=== PATIENT | male | born 1965 | race Caucasian/White ===

== ENCOUNTER 2018-05-11 11:07 | Emergency (ER) | payer BC ==
[2018-05-11 12:33] LABS: ABS Basophils 0 10^3/ul (0-0.2); ABS Eosinophils 0.1 10^3/ul (0-0.6); ABS Lymphocytes 1.9 10^3/ul (1.0-4.8); ABS Monocytes 0.4 10^3/ul (0-0.8); ABS Neutrophils 3.5 10^3/ul (1.5-7.7); ABS Nucleated RBC 0 10^3/ul; Hematocrit 47 % (42-52); Hemoglobin 16.2 g/dl (14.0-18.0); Mean Corpuscular HGB Conc 35 g/dl (31-36); Mean Corpuscular Hemoglobin 29 pg (27-31); Mean Corpuscular Volume 83 fL (80-94); Mean Platelet Volume 8.4 um3 (7.4-10.4); Nucleated Red Blood Cells % 0.1; Platelet Count 174 10^3/ul (150-450); Red Blood Count 5.67 10^6/ul (4.00-5.40); Red Cell Distribution Width 15 % (10.5-15); White Blood Count 5.9 10^3/ul (3.5-10.8)
[2018-05-11 12:53] LABS: EGFR Non-African American 79.1 (>60)
[2018-05-11] MEDS ORDERED: Iohexol 300* (CONTRAST) 10 ML SDV IV ONE (13:43)
[2018-05-11 15:06] LABS: Urine Appearance Clear; Urine Blood Negative (Negative); Urine Color Yellow; Urine Ketones Negative (Negative); Urine Protein Negative (Negative); Urine Specific Gravity 1.019 (1.010-1.030); Urine Urobilinogen Negative (Negative)
--- NOTE | 2018-05-11 15:08 | RAD ---
CLINICAL HISTORY: low abd pain radiating to left testicle x 3 weeks COMPARISON: None TECHNIQUE: Multiple contiguous axial CT scans were obtained of the abdomen and pelvis after the administration of intravenous contrast. Coronal and sagittal multiplanar reformations are submitted for review. Oral contrast was administered. Delayed images were obtained through the abdomen. FINDINGS: LUNG BASES: The lung bases are clear. LIVER: The liver is diffusely low in attenuation compared to the spleen. There is a hypervascular lesion of the medial right lobe of liver suggestive of a hemangioma. On axial image 23, there is a 1.2 cm low-attenuation lesion of the right lobe of liver inferiorly. BILE DUCTS: There is no intrahepatic or extrahepatic biliary dilatation. GALLBLADDER: The gallbladder is normal, without pericholecystic inflammatory change. PANCREAS: The pancreas is normal, without mass or ductal dilatation. SPLEEN: Normal in size and appearance. UPPER GI TRACT: Evaluation of the gastrointestinal tract is limited by incomplete gastric distention. The upper GI tract is unremarkable. SMALL BOWEL AND MESENTERY: The small bowel is normal in contour, course, and caliber. There is no obstruction or dilatation. COLON: The colon is normal in contour, course, caliber. There is no pericolonic inflammatory change. ADRENALS: Normal bilaterally. KIDNEYS: The kidneys are normal in shape, size, contour, and axis. There is no hydronephrosis or nephrolithiasis. BLADDER: The bladder is smooth in contour. PELVIC ORGANS: The prostate is diffusely enlarged. The seminal vesicles are symmetric. There are lipomas of the somatic cords bilaterally versus bilateral fat-containing inguinal hernias. AORTA: The aorta is normal. IVC: Unremarkable LYMPH NODES: There is no lymphadenopathy by size criteria. ABDOMINAL WALL: There is no evidence for abdominal wall hernia. BONES AND SOFT TISSUES: There is mild scoliotic curvature of the spine. Degenerative changes are noted most now set L5-S1 OTHER: None IMPRESSION: 1. ENLARGED PROSTATE. 2. FATTY INFILTRATION OF THE LIVER. 3. THERE IS A HYPERVASCULAR LESION OF THE RIGHT LOBE OF LIVER SUGGESTIVE OF A HEPATIC HEMANGIOMA. 4. THERE IS A LOW-ATTENUATION LESION OF THE RIGHT LOBE OF LIVER THAT HAS AN INDETERMINATE IMAGING APPEARANCE, MEASURING UP TO 1.2 CM IN SIZE. IN THE ABSENCE OF A HISTORY OF MALIGNANCY, CONSIDER FOLLOW-UP CONTRAST ENHANCED MULTIPHASE LIVER PROTOCOL CT OR CONTRAST ENHANCED MRI OF THE ABDOMEN IN 6 MONTHS.
[2018-05-11 16:05] VITALS: BP 159/105
--- NOTE | 2018-05-11 17:31 | ED ---
Maricarmen Payne Jacob, scribed for Nirav Grimes MD on 05/11/18 at 1205 . GI/ HPI - HPI Summary HPI Summary: Pt is a 53 y/o M w/ c/o left testicle pain alongside LLQ pain and left arm and leg numbness, onsetting about three weeks ago. On triage, pt rates pain 4/10 and notes movement worsens pain. He states left testicle feels warm and slightly pruritic while abdominal pain occurs in short and intermittent episodes every several days. He also notes transient numbness in his left testicle while watching TV a couple of days ago. Pt reports arm is currently "feeling better". He also notes left lower back pain, but states this is chronic. He is unsure if pain has worsened since onset. Pt has experienced constipation a couple of weeks ago but denies testicular swelling, N/V, dysuria and hematuria. Hx of enlarged prostate. - History of Current Complaint Chief Complaint: EDGeneral Time Seen by Provider: 05/11/18 11:59 Stated Complaint: LT SIDE PAIN/NUMBNESS Hx Obtained From: Patient Onset/Duration: Started Weeks Ago - 3 weeks ago Timing: Constant - testicular pain, Intermittent - abdominal pain Current Severity: Moderate Pain Intensity: 4 Location of Pain: LLQ, Groin - left testicle, Other - POSITIVE: left lower back pain Pain Characteristics: Burning - left testicle, Itching - left testicle Associated Signs and Symptoms: Positive: Back Pain - states this has been chronic, Abdominal Pain - LLQ, Other: - POSITIVE: constipation, warmness and itchiness of left testicle NEGATIVE: swelling. Negative: Nausea, Vomiting, Hematuria, Dysuria Aggravating Factor(s): Movement - Allergy/Home Medications Allergies/Adverse Reactions: Allergies Allergy/AdvReac Type Severity Reaction Status Date / Time No Known Allergies Allergy Verified 05/11/18 11:13 Home Medications: Home Medications Lisinopril 20 mg PO DAILY 05/11/18 [History Confirmed 05/11/18] Zolpidem Tartrate 5 mg PO DAILY 05/11/18 [History Confirmed 05/11/18] PMH/Surg Hx/FS Hx/Imm Hx Musculoskeletal History: Reports: Other Musculoskeletal History - lumbago Neurological History: Reports: Other Neuro Impairments/Disorders - sciatica Infectious Disease History: No Infectious Disease History: Denies: Traveled Outside the [place] in Last 30 Days - Family History Known Family History: Negative: Blood Disorder - Social History Alcohol Use: Occasionally Smoking Status (MU): Never Smoked Tobacco Review of Systems Positive: Abdominal Pain - LLQ, Other - constipation was present a few weeks ago. Negative: Vomiting, Nausea Positive: other - NEGATIVE: testicular swelling POSITIVE: left testicular pain, warmness, itchiness, transient numbness. Negative: dysuria, hematuria Positive: Other - POSITIVE: left lower back pain, chronic. left leg and arm numbness All Other Systems Reviewed And Are Negative: Yes Physical Exam - Summary Physical Exam Summary: Appearance: Well-appearing, Well-nourished, lying in bed comfortably Skin: Warm, dry, no obvious rash Eyes: sclera anicteric, no conjunctival pallor ENT: mucous membranes moist, pharynx appears normal Neck: Supple, nontender Respiratory: Clear to auscultation, no signs of respiratory distress Cardiovascular: Normal S1, S2. No murmurs. Normal distal pulses in tibial and radial bilaterally. Abdomen: Soft, nontender, normal active bowel sounds present Genitourinary: testicles normal Musculoskeletal: Normal, Strength/ROM Intact Neurological: A&Ox3, awake and alert, mentation is normal, speech is fluent and appropriate Psychiatric: affect is normal, does not appear anxious or depressed Triage Information Reviewed: Yes Vital Signs On Initial Exam: Initial Vitals Temp Pulse Resp BP Pulse Ox 98.5 F 65 15 152/78 99 05/11/18 11:09 05/11/18 11:09 05/11/18 11:09 05/11/18 11:09 05/11/18 11:09 Vital Signs Reviewed: Yes Diagnostics - Vital Signs Vital Signs Temp Pulse Resp BP Pulse Ox 05/11/18 11:09 98.5 F 65 15 152/78 99 - Laboratory Lab Results: Lab Results 05/11/18 05/11/18 05/11/18 Range/Units 12:17 12:17 14:51 WBC 5.9 (3.5-10.8) 10^3/ul RBC 5.67 H (4.00-5.40) 10^6/ul Hgb 16.2 (14.0-18.0) g/dl Hct 47 (42-52) % MCV 83 (80-94) fL MCH 29 (27-31) pg MCHC 35 (31-36) g/dl RDW 15 (10.5-15) % Plt Count 174 (150-450) 10^3/ul MPV 8.4 (7.4-10.4) um3 Neut % (Auto) 59.4 (38-83) % Lymph % (Auto) 32.0 (25-47) % Dubois % (Auto) 6.8 (0-7) % Eos % (Auto) 1.0 (0-6) % Baso % (Auto) 0.8 (0-2) % Absolute Neuts (auto) 3.5 (1.5-7.7) 10^3/ul Absolute Lymphs (auto) 1.9 (1.0-4.8) 10^3/ul Absolute Monos (auto) 0.4 (0-0.8) 10^3/ul Absolute Eos (auto) 0.1 (0-0.6) 10^3/ul Absolute Basos (auto) 0 (0-0.2) 10^3/ul Absolute Nucleated RBC 0 10^3/ul Nucleated RBC % 0.1 Sodium 139 (135-145) mmol/L Potassium 4.3 (3.5-5.0) mmol/L Chloride 105 (101-111) mmol/L Carbon Dioxide 29 (22-32) mmol/L Anion Gap 5 (2-11) mmol/L BUN 12 (6-24) mg/dL Creatinine 0.99 (0.67-1.17) mg/dL Est GFR ( Amer) 95.7 (>60) Est GFR (Non-Af Amer) 79.1 (>60) BUN/Creatinine Ratio 12.1 (8-20) Glucose 103 H (70-100) mg/dL Calcium 9.4 (8.6-10.3) mg/dL Total Bilirubin 0.70 (0.2-1.0) mg/dL AST 25 (13-39) U/L ALT 39 (7-52) U/L Alkaline Phosphatase 67 (34-104) U/L Total Protein 7.2 (6.4-8.9) g/dL Albumin 4.5 (3.2-5.2) g/dL Globulin 2.7 (2-4) g/dL Albumin/Globulin Ratio 1.7 (1-3) Lipase 30 (11.0-82.0) U/L Urine Color Yellow Urine Appearance Clear Urine pH 5.0 (5-9) Ur Specific [place] 1.019 (1.010-1.030) Urine Protein Negative (Negative) Urine Ketones Negative (Negative) Urine Blood Negative (Negative) Urine Nitrate Negative (Negative) Urine Bilirubin Negative (Negative) Urine Urobilinogen Negative (Negative) Ur Leukocyte Esterase Negative (Negative) Urine Glucose Negative (Negative) Result Diagrams: 05/11/18 12:17 05/11/18 12:17 Lab Statement: Any lab studies that have been ordered have been reviewed, and results considered in the medical decision making process. - CT CT abd/pel CT Interpretation: Positive (See Comments) CT Interpretation Completed By: Radiologist - 1. ENLARGED PROSTATE. 2. FATTY INFILTRATION OF THE LIVER. 3. THERE IS A HYPERVASCULAR LESION OF THE RIGHT LOBE OF LIVER SUGGESTIVE OF A HEPATIC HEMANGIOMA. 4. THERE IS A LOW- ATTENUATION LESION OF THE RIGHT LOBE OF LIVER THAT HAS AN INDETERMINATE IMAGING APPEARANCE, MEASURING UP TO 1.2 CM IN SIZE. IN THE ABSENCE OF A HISTORY OF MALIGNANCY, CONSIDER FOLLOW-UP CONTRAST ENHANCED MULTIPHASE LIVER PROTOCOL CT OR CONTRAST ENHANCED MRI OF THE ABDOMEN IN 6 MONTHS. THIS REPORT HAS BEEN REVIEWED BY ED PHYSICIAN Re-Evaluation - Re-Evaluation First Eval Re-Evaluation Time: 15:26 Comment: Results of tests were discussed with patient. Patient informed he will be discharged. GIGU Course/Dx - Diagnoses Provider Diagnoses: Abdominal pain, Acute prostatitis Discharge - Sign-Out/Discharge Documenting (check all that apply): Discharge/Admit/Transfer - Discharge Plan Condition: Good Disposition: HOME Prescriptions: Sulfamethox/Trimethoprim DS* [Bactrim DS 800/160 TAB*] 1 tab PO BID #20 tab Patient Education Materials: Prostatitis (ED) Referrals: Dimitris Jeronimo MD [Primary Care Provider] - - Billing Disposition and Condition Condition: GOOD Disposition: Home The documentation as recorded by the Maricarmen cortes Jacob accurately reflects the service I personally performed and the decisions made by me, Nirav Grimes MD.
== END 2018-05-11 16:02 | disposition home or self-care (01) ==
LOC: ED 11:07
DX: R10.32 Left lower quadrant pain (principal); N41.0 Acute prostatitis; K76.0 Fatty (change of) liver, not elsewhere classified
CPT/HCPCS: 36415; 74177; 80053; 81003; 83036; 83690; 85025; 99282; Q9967

== ENCOUNTER 2018-11-13 10:11 | Emergency (ER) | payer BC ==
--- OUTSIDE RECORDS SUMMARY | 2018-11-13 10:18 | XMS REPORT | Continuity of Care Document ---
:1965 External Reference #:[id number] Author Name Faiza Quevedo Care Team Providers Name Role Phone Flavia Chavez MD Primary Care Physician Unavailable Payers Type Date Identification Numbers Payment Provider Subscriber Policy Number: [id number] [employer] Nando Higginbotham PayID: [id number] [address] [address] [place] [address] Advance Directives Description No Information Available Problems Description No Information Family History Description No Information Available Social History Type Date Description Comments Sex Unknown Marital Status Lives With Spouse Occupation Currently Working Smokeless Tobacco Never Used Smokeless Tobacco ETOH Use Rarely consumes alcohol Tobacco Use Start: Unknown Patient has never smoked Recreational Drug Use Denies Drug Use Smoking Status Reviewed: 11/13/18 Patient has never smoked Exercise Type/Frequency Exercises sporadically Allergies, Adverse Reactions, Alerts Description No Known Drug Allergies Medications Medication Date Status Form Strength Qnty SIG Indications Ordering Provider Lisinopril Active Tablets 10mg 1 by mouth Unknown 000 every day Zolpidem Active Tablets 10mg 1 tab by Unknown Tartrate 000 mouth every night at bedtime as needed Alfuzosin HCL Active Tablets ER 10mg 1 tab Kevin, ER 000 24HR twice MD Tato daily Gabapentin Active Capsules 100mg as needed Unknown 000 Aspirin Adult Active Tablets DR 81mg 1 by mouth Unknown Low Strength 000 every day Fish Oil Active Capsules 1200mg 2 by mouth Unknown Burp-Less 000 every day CBD Oil Active as Unknown 000 directed Ibuprofen Active Tablets 200mg as needed Unknown 000 Cephalexin Hx Tablets 500mg 21tabs 1 by mouth K40.90 Tori Brandon 018 three MD Moi times a day Endocet Hx Tablets 5-325mg 8tabs 1 Tab PO Joi 018 Q6H prn B. Pain Eckenrode, BUSINESS FUNCTIONAL ANALYST Immunizations Description No Information Available Vital Signs Date Vital Result Comment 11/13/2018 9:34am Heart Rate 72 /min BP Systolic 140 mmHg BP Diastolic 82 mmHg Respiratory Rate 18 /min Body Temperature 97.0 F 10/21/2018 9:21am Heart Rate 66 /min BP Systolic Sitting 140 mmHg BP Diastolic Sitting 82 mmHg Respiratory Rate 18 /min Body Temperature 98.4 F 10/07/2018 9:19am Heart Rate 66 /min BP Systolic Sitting 118 mmHg BP Diastolic Sitting 72 mmHg Respiratory Rate 18 /min Body Temperature 97.8 F 10/02/2018 1:24pm Heart Rate 72 /min BP Systolic 136 mmHg BP Diastolic 80 mmHg Respiratory Rate 16 /min Body Temperature 97.3 F 09/25/2018 11:07am Heart Rate 66 /min BP Systolic Sitting 120 mmHg BP Diastolic Sitting 82 mmHg Respiratory Rate 18 /min Body Temperature 97.5 F 09/04/2018 11:02am Height 70 inches 5'10" Weight 230.00 lb Heart Rate 78 /min BP Systolic Sitting 122 mmHg BP Diastolic Sitting 84 mmHg Respiratory Rate 18 /min Body Temperature 97.9 F BMI (Body Mass Index) 33.0 kg/m2 07/31/2018 9:58am Height 70 inches 5'10" Weight 230.00 lb Heart Rate 74 /min BP Systolic 154 mmHg BP Diastolic 82 mmHg Respiratory Rate 18 /min Body Temperature 98.6 F BMI (Body Mass Index) 33.0 kg/m2 Results Test Date Facility Test Result H/L Range Note Laboratory test 09/17/2018 [facility] Point of Care 104 mg/dL High 70-[address] [place] [address] [phone] 1 Transit Worker: [id number] Procedures Date Code Description Status 09/17/2018 98682 Repair Hernia Inguinal > 5Yrs, Reducible Completed 09/17/2018 04634 Repair Hernia Inguinal > 5Yrs, Reducible Completed Encounters Type Date Location Provider Dx Diagnosis Office Visit 07/31/2018 [facility], K40.90 Unil inguinal 10:00a Of [facility] M.D. hernia, w/o obst or gangr, not spcf as recur Plan of Treatment Future Appointment(s):11/18/2018 1:00 pm - Kishan Dubois M.D. at [facility]11/13/2018 - Laron Bowie M.D.K40.90 Unilateral inguinal hernia, without obstruction or gangrene,Follow up:As needed
--- OUTSIDE RECORDS SUMMARY | 2018-11-13 10:18 | XMS REPORT | Continuity of Care Document ---
:1965 External Reference #:[id number] Author Name Faiza Quevedo Care Team Providers Name Role Phone Flavia Chavez MD Primary Care Physician Unavailable Payers Type Date Identification Numbers Payment Provider Subscriber Policy Number: [id number] BS Facets Nando Higginbotham PayID: [id number] [address] [address] [place] [address] Advance Directives Description No Information Available Problems Description No Information Family History Description No Information Available Social History Type Date Description Comments Sex Unknown Marital Status Lives With Spouse Occupation Currently Working Smokeless Tobacco Never Used Smokeless Tobacco ETOH Use Rarely consumes alcohol Tobacco Use Start: Unknown Patient has never smoked Recreational Drug Use Denies Drug Use Smoking Status Reviewed: 10/21/18 Patient has never smoked Exercise Type/Frequency Exercises [...] Joi 018 Q6H prn B. Pain Eckenrode, RISK ADVISOR Immunizations Description No Information Available Vital Signs Date Vital Result Comment 10/21/2018 9:21am Heart Rate 66 /min BP [...] 70-100 [address] [place] [address] [phone] 1 Event Decorator: [id number] Procedures Date Code Description Status 09/17/2018 30810 Repair Hernia Inguinal > 5Yrs, Reducible Completed 09/17/2018 65808 Repair Hernia Inguinal > 5Yrs, Reducible Completed Encounters Type Date Location Provider Dx Diagnosis Office Visit 07/31/2018 [facility], K40.90 Unil inguinal 10:00a Of [facility] hernia, w/o obst or gangr, not spcf as recur Plan of Treatment Future Appointment(s):11/13/2018 9:15 am - Laron Bowie M.D. at [facility]11/18/2018 1:00 pm - Kishan Dubois M.D. at [facility]10/21/2018 - Laron Bowie M.D.K40.90 Unilateral inguinal hernia, without obstruction or gangrene,Follow up:3 weeks
[2018-11-13 10:20] VITALS: BP 140/91
--- NOTE | 2018-11-13 11:27 | UC ---
Shoulder Pain HPI - HPI Summary HPI Summary: The patient is a 53-year-old male with right deltoid pain 8 weeks. It seemed to start after he had done some taking. Every Friday he throws axes at a friend's house and his symptoms worsen after that. He is right handed. He denies any prior history of right shoulder problems. 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 - History of Current Complaint Chief Complaint: UCUpperExtremity Stated Complaint: UPPER ARM PAIN Time Seen by Provider: 11/13/18 10:22 Hx Obtained From: Patient Onset/Duration: Gradual Onset, Lasting Weeks Timing: Constant Severity Initially: Mild Severity Currently: Mild Location Of Pain: Is Discrete @ Pain Intensity: 2 Pain Scale Used: 0-10 Numeric Character: Dull, Aching Aggravating Factor(s): Movement, External Rotation Alleviating Factor(s): Rest Associated Signs And Symptoms: Positive: Negative Related History: Dominant Hand Right - Allergies/Home Medications Allergies/Adverse Reactions: Allergies Allergy/AdvReac Type Severity Reaction Status Date / Time CATSCAN DYE Allergy Nausea And Uncoded 11/13/18 10:20 Vomiting PMH/Surg Hx/FS Hx/Imm Hx Previously Healthy: Yes Endocrine History: Dyslipidemia Cardiovascular History: Hypertension - Surgical History Surgical History: Yes Surgery Procedure, Year, and Place: LASIK EYE. Rt MIDDLE FINGER - GANGLION CYST REMOVED hernia - Family History Known Family History: Positive: Hypertension Negative: Blood Disorder - Social History Alcohol Use: Rare Substance Use Type: None Smoking Status (MU): Never Smoked Tobacco Have You Smoked in the Last Year: No Review of Systems All Other Systems Reviewed And Are Negative: Yes Constitutional: Positive: Negative Skin: Positive: Negative Eyes: Positive: Negative ENT: Positive: Negative Respiratory: Positive: Negative Cardiovascular: Positive: Negative Gastrointestinal: Positive: Negative Genitourinary: Positive: Negative Motor: Positive: Negative Neurovascular: Positive: Negative Musculoskeletal: Positive: Arthralgia Neurological: Positive: Negative Psychological: Positive: Negative Physical Exam Triage Information Reviewed: Yes Appearance: Well-Appearing, No Pain Distress, Well-Nourished Vital Signs: Initial Vital Signs Temp 98.4 F 11/13/18 10:17 Pulse 68 11/13/18 10:17 Resp 16 11/13/18 10:17 BP 140/91 11/13/18 10:17 Pulse Ox 100 11/13/18 10:17 Vital Signs Reviewed: Yes Eyes: Positive: Conjunctiva Clear ENT: Positive: Pharynx normal. Negative: Nasal congestion, Nasal drainage, Trismus, Muffled voice Neck: Positive: Nontender, No Lymphadenopathy Respiratory: Positive: Lungs clear, Normal breath sounds, No respiratory distress, No accessory muscle use Cardiovascular Exam: Normal Cardiovascular: Positive: RRR, No Murmur Musculoskeletal: Positive: ROM Intact, No Edema, Other: - tender right deltoid Psychological Exam: Normal Skin Exam: Normal Diagnostics - Radiology No standard instances Radiology Interpretation Completed By: Radiologist Summary of Radiographic Findings: mild right shoulder DJD Shoulder Course/Dx - Differential Dx/Diagnosis Provider Diagnosis: Deltoid bursitis Discharge - Sign-Out/Discharge Documenting (check all that apply): Patient Departure All imaging exams completed and their final reports reviewed: Yes - Discharge Plan Condition: Stable Disposition: HOME Patient Education Materials: Shoulder Bursitis (ED) Referrals: [facility] [Outside] - As Soon As Possible Additional Instructions: heat massage advil or aleve - Billing Disposition and Condition Condition: STABLE Disposition: Home
== END 2018-11-13 11:36 | disposition home or self-care (01) ==
LOC: UCEAST 10:11
DX: M75.51 Bursitis of right shoulder (principal); M19.011 Primary osteoarthritis, right shoulder; Z91.041 Radiographic dye allergy status
CPT/HCPCS: 99211; G0463

== ENCOUNTER 2019-09-22 09:52 | Emergency (ER) | payer BC ==
[2019-09-22 10:26] LABS: ABS Basophils 0.1 10^3/ul (0-0.2); ABS Eosinophils 0.1 10^3/ul (0-0.6); ABS Lymphocytes 1.7 10^3/ul (1.0-4.8); ABS Monocytes 0.4 10^3/ul (0-0.8); ABS Neutrophils 3.8 10^3/ul (1.5-7.7); Eosinophil % 1.3 %; Hematocrit 46 % (42-52); Hemoglobin 15.6 g/dL (14.0-18.0); Lymphocyte % 28.2 %; Mean Corpuscular HGB Conc 34 g/dL (31-36); Mean Corpuscular Hemoglobin 28 pg (27-31); Mean Corpuscular Volume 84 fL (80-94); Mean Platelet Volume 8.1 fL (7.4-10.4); Nucleated Red Blood Cells % 0.2; Platelet Count 176 10^3/uL (150-450); Red Blood Count 5.51 10^6 /uL (4.18-5.48); Red Cell Distribution Width 15 % (10-15)
[2019-09-22 10:30] LABS: INR 1.03 (0.82-1.09)
[2019-09-22 10:43] LABS: Albumin 4.2 g/dL (3.2-5.2); Albumin/Globulin Ratio 1.4 (1-3); BUN/Creatinine Ratio 14.1 (8-20); Calcium 9.3 mg/dL (8.6-10.3); EGFR African American 95.3 (>60); EGFR Non-African American 78.8 (>60); Potassium 4.2 mmol/L (3.5-5.0); Total Bilirubin 0.6 mg/dL (0.2-1.0); Total Protein 7.2 g/dL (6.4-8.9); Troponin I 0.01 ng/mL (<0.03)
--- NOTE | 2019-09-22 10:43 | ED ---
HPI Chest Pain - HPI Summary HPI Summary: Patient is a 54 y/o M presenting to the ED for a chief complaint of chest pain. Patient is present with his . Patient states that he has upper back pain between his shoulders, but recently that back pain has been left-sided and radiating to the left side of the chest. Patient describes the back pain as a spasm with a stabbing sensation, and describes the chest pain as a pressure sensation. The chest pain is intermittent and last for approximately 2 hours before resolving. He denies chest pain at the present time. The chest pain does not worsen with exertion. Patient also notes nausea with the chest pain, diaphoresis at night, cold symptoms one day ago that has resolved, and headache one day ago that has resolved. Patient denies shortness of breath, diaphoresis with chest pain, calf pain, calf swelling, or bilateral LE swelling. He also reports paresthesia in the bilateral hands and feet at baseline for which he saw a neurologist one year ago without any remarkable findings. Patient admits similar chest pain in the past. Patient takes baby aspirin for pain, and last took baby aspirin on 09/21/19. He reports frequency 1 hour and [address] to and from work a few times a week, a recent trip to [place], and a recent flight. PMHx is significant for hypertension, but patient denies any cardiac problems or blood clot history. PSHx is significant for a hernia repair one year ago. FMHx is significant for cardiac disease. Patient previously had a cardiac workup several years ago due to his FMHx. Patient denies tobacco, alcohol, or drug use. Allergies noted. Medications reviewed. - History of Current Complaint Chief Complaint: EDChestPainROMI Time Seen by Provider: 09/22/19 10:41 Hx Obtained From: Patient Onset/Duration: Atraumatic, Resolved Timing: Intermittent, Lasting Hours - 2 hours Initial Severity: Mild Current Severity: Mild Pain Intensity: 1 Pain Scale Used: 0-10 Numeric Chest Pain Location: Left Anterior Chest Pain Radiates: Yes Chest Pain Radiates To:: Back Aggravating Factor(s): Nothing Alleviating Factor(s): Nothing Associated Signs and Symptoms: Positive: Chest Pain, Headaches - Resolved, Diaphoresis - At night, not with chest pain, Nausea, Back Pain - Upper and left- sided, Other: - Positive cold symptoms, resolved. Negative: Shortness of Breath , Calf Pain/Swelling, Edema - Bilateral LE - Allergy/Home Medications Allergies/Adverse Reactions: Allergies Allergy/AdvReac Type Severity Reaction Status Date / Time CATSCAN DYE AdvReac Intermediate Nausea And Uncoded 09/10/19 11:19 Vomiting PMH/Surg Hx/FS Hx/Imm Hx Previously Healthy: Yes Endocrine/Hematology History: Denies: Hx Diabetes - HGS-SPZULZSU-OHME CONTROL Cardiovascular History: Reports: Hx Hypertension - ON MEDICATION FOR Denies: Hx Pacemaker/ICD History: Denies: Hx Dialysis, Hx Renal Disease Musculoskeletal History: Reports: Hx Back Problems, Other Musculoskeletal History - lumbago Sensory History: Denies: Hx Contacts or Glasses, Hx Legally Blind, Hx Deafness, Hx Hearing Aid Opthamlomology History: Denies: Hx Contacts or Glasses, Hx Legally Blind EENT History: Denies: Hx Deafness Neurological History: Reports: Other Neuro Impairments/Disorders - SCIATICA HISTORY Psychiatric History: Denies: Hx Panic Disorder - Surgical History Surgical History: Yes Surgery Procedure, Year, and Place: LASIK EYE. Rt MIDDLE FINGER - GANGLION CYST REMOVED. September 2018, left inguinal hernia repair w/ mesh (Dr Bowie) Hx Anesthesia Reactions: No Infectious Disease History: No Infectious Disease History: Denies: Traveled Outside the [place] in Last 30 Days - Family History Known Family History: Positive: Cardiac Disease, Hypertension Negative: Blood Disorder - Social History Occupation: Employed Full-time Lives: With Family Alcohol Use: None Hx Substance Use: No Substance Use Type: Reports: None Hx Tobacco Use: No Smoking Status (MU): Never Smoked Tobacco Have You Smoked in the Last Year: No Review of Systems Positive: Skin Diaphoresis - At night, not with chest pain Positive: Other - Positive cold symptoms, resolved Positive: Chest Pain - Left-sided Negative: Shortness Of Breath Positive: Nausea Positive: Myalgia - Upper and left side of back; negative calf pain. Negative: Edema - Negative bilateral LE or calf Positive: Headache - Resolved, Paresthesia - Bilateral hands and feet at baseline All Other Systems Reviewed And Are Negative: Yes Physical Exam - Summary Physical Exam Summary: Constitutional: Well-developed, Well-nourished, Alert. (-) Distressed Skin: Warm, Dry HENT: Normocephalic; Atraumatic Eyes: Conjunctiva normal Neck: Musculoskeletal ROM normal neck. (-) JVD, (-) Stridor, (-) Tracheal deviation Cardio: Rhythm regular, rate normal, Heart sounds normal; Intact distal pulses; Radial pulses are 2+ and symmetric. (-) Murmur Pulmonary/Chest wall: Effort normal. (-) Respiratory distress, (-) Wheezes, (-) Rales Abd: Soft, (-) tenderness, (-) Distension, (-) Guarding, (-) Rebound Musculoskeletal: (-) Edema Lymph: (-) Cervical adenopathy Neuro: Alert, Oriented x3 Psych: Mood and affect Normal Triage Information Reviewed: Yes Vital Signs On Initial Exam: Initial Vitals Temp Pulse Resp BP Pulse Ox 98.1 F 80 14 146/85 99 09/22/19 09:59 09/22/19 09:59 09/22/19 09:59 09/22/19 09:59 09/22/19 09:59 Vital Signs Reviewed: Yes Procedures - Sedation Patient Received Moderate/Deep Sedation with Procedure: No Diagnostics - Vital Signs Vital Signs Temp Pulse Resp BP Pulse Ox 09/22/19 09:59 98.1 F 80 14 146/85 99 - Laboratory Lab Results: Lab Results 09/22/19 Range/Units 10:09 WBC 6.0 (3.5-10.8) 10^3/uL RBC 5.51 H (4.18-5.48) 10^6 /uL Hgb 15.6 (14.0-18.0) g/dL Hct 46 (42-52) % MCV 84 (80-94) fL MCH 28 (27-31) pg MCHC 34 (31-36) g/dL RDW 15 (10-15) % Plt Count 176 (150-450) 10^3/uL MPV 8.1 (7.4-10.4) fL Neut % (Auto) 63.3 % Lymph % (Auto) 28.2 % Starke % (Auto) 5.9 % Eos % (Auto) 1.3 % Baso % (Auto) 1.3 % Absolute Neuts (auto) 3.8 (1.5-7.7) 10^3/ul Absolute Lymphs (auto) 1.7 (1.0-4.8) 10^3/ul Absolute Monos (auto) 0.4 (0-0.8) 10^3/ul Absolute Eos (auto) 0.1 (0-0.6) 10^3/ul Absolute Basos (auto) 0.1 (0-0.2) 10^3/ul Absolute Nucleated RBC 0.0 10^3/ul Nucleated RBC % 0.2 Result Diagrams: 09/22/19 10:09 09/22/19 10:09 Lab Statement: Any lab studies that have been ordered have been reviewed, and results considered in the medical decision making process. - Radiology Chest X-ray Radiology Interpretation Completed By: Radiologist Summary of Radiographic Findings: Chest X-ray IMPRESSION: NO ACTIVE CARDIOPULMONARY DISEASE. Reviewed by Dr. Angel. - EKG 09:55 Cardiac Rate: NL - 70 BPM EKG Rhythm: Sinus Rhythm ST Segment: Normal Ectopy: None Summary of EKG Findings: EKG at 09:55 shows 70 BPM with normal sinus rhythm, T wave inversion in lead III, no STEMI. Reviewed and interpreted by Dr. Angel. Re-Evaluation - Re-Evaluation First Eval Re-Evaluation Time: 11:30 Change: Unchanged Comment: At 11:30, patient continues to be asymptomatic and was made aware of test results. Chest Pain Course/Dx - Course Course Of Treatment: Patient is here with episodic back pain that relates to his left chest. Patient's had chronic back pain but it typically does not go to his chest which was is concerning factor. Patient was asymptomatic upon arrival. Given patient's episodic nature of pain and well appearance, I have a low suspicion for aortic dissection or PE. Patient had a negative d-dimer performed. Patient had a negative chest x-ray. Patient had negative serial troponin. This is likely a muscle spasm in nature however, patient was encouraged call cardiology for a stress test - Diagnoses Provider Diagnoses: Left-sided chest pain, Back pain Discharge ED - Sign-Out/Discharge Documenting (check all that apply): Patient Departure - Discharge - Discharge Plan Condition: Stable Disposition: HOME Patient Education Materials: Chest Pain (ED) Referrals: Flavia Chavez MD [Primary Care Provider] - Juan Miller MD [Medical Doctor] - Additional Instructions: FOLLOW UP WITH DR. MILLER AND YOUR PRIMARY CARE PROVIDER TO SET UP A CARDIAC STRESS TEST. RETURN TO THE EMERGENCY DEPARTMENT FOR WORSENING CHEST PAIN, TROUBLE BREATHING, OR ANY OTHER CONCERNING SYMPTOMS. - Billing Disposition and Condition Condition: STABLE Disposition: Home - Attestation Statements Document Initiated by Alexandraibe: Yes Documenting Scribe: Ofelia Alcantar Provider For Whom Scribe is Documenting (Include Credential): Adam Angel MD Scribe Attestation: IOfelia, scribed for Adam Angel MD on 09/22/19 at 2024. Scribe Documentation Reviewed: Yes Provider Attestation: The documentation as recorded by the Ofelia cortes accurately reflects the service I personally performed and the decisions made by me, Adam Angel MD Status of Scribe Document: Viewed
[2019-09-22] MEDS ORDERED: Aspirin 81 mg CHEW TAB* 81 MG TAB.CHEW PO ONE (10:57)
[2019-09-22 13:32] VITALS: BP 146/93
== END 2019-09-22 13:32 | disposition home or self-care (01) ==
LOC: ED 09:52
DX: R07.9 Chest pain, unspecified (principal); M54.9 Dorsalgia, unspecified; I10 Essential (primary) hypertension; Z79.899 Other long term (current) drug therapy; Z91.041 Radiographic dye allergy status
CPT/HCPCS: 36415; 71046; 80053; 84484; 85025; 85379; 85610; 93005; 99284; A9270-GY

== ENCOUNTER 2019-12-27 07:32 | Day surgery (SDC) | payer BC ==
--- NOTE | 2019-12-17 14:32 | HP ---
AMENDED REPORT NOW INCLUDES DESIGNATED COSIGNER CC: Dr. Sonia Acosta * PREOPERATIVE HISTORY AND PHYSICAL: DATE OF ADMISSION/SURGERY: 12/27/19 This patient is scheduled for same-day surgery admission by Dr. Reeves on Friday , 12/27/19. DATE OF PREOPERATIVE HISTORY AND PHYSICAL EXAMINATION: 12/17/19. ATTENDING SURGEON: Dr. Curtis Reeves * (dictated by Joi Ponce NP). CHIEF COMPLAINT: Right inguinal hernia. HISTORY OF PRESENT ILLNESS: The patient is a 54-year-old male recently evaluated by Dr. Reeves for a right inguinal bulge, which has been symptomatic for several weeks. He experiences sharp pain at times with severity 3-5/10. He states that the discomfort can be worse with activity or prolonged sitting. The discomfort can be modified by rest or change of position. He has a history of chronic left groin pain, status post open left inguinal hernia repair with mesh in 2018 and has been followed in the pain clinic. He denies any signs or symptoms to suggest incarceration or strangulation. Dr. Reeves has examined the patient and has recommended robotic right inguinal hernia repair with mesh as a same day surgery procedure under general anesthesia. Dr. Reeves described the nature of the surgical procedure, the rationale for the procedure, the relevant risks and benefits and today I reviewed the expected postoperative care and recovery. The patient has had a chance to ask questions and stated that he understands the information and is satisfied with the answers given to his questions. He will sign surgical consent on the day of surgery. PAST MEDICAL HISTORY: Hypertension. PAST SURGICAL HISTORY: Open left inguinal hernia repair with mesh in 2018; [facility]. MEDICATIONS: 1. Alfuzosin 10 mg p.o. b.i.d. 2. Lisinopril 10 mg p.o. daily. 3. Aspirin 81 mg p.o. daily and I have asked the patient to hold it for 1 week preoperatively. 4. Vitamin D 2000 units daily. 5. Multivitamin 1 tablet daily. 6. Fish oil 1000 mg 2 capsules daily. 7. Saw palmetto 450 mg 1 tablet daily. ALLERGIES: CT CONTRAST DYE caused severe nausea and vomiting. No known drug allergies. FAMILY HISTORY: Father at age 69, cause unspecified. Mother has a history of hypertension. No known anesthesia complications, bleeding tendencies , or clotting disorders. 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 He has never been a smoker. He rarely drinks alcohol and denies the use of other substances. REVIEW OF SYSTEMS: Constitutional: No fevers, chills, excessive fatigue, or weight loss. General: No previous anesthesia complications. No history of deep vein thrombosis or pulmonary embolism. No bleeding tendencies or history of blood transfusions. EENMT: No visual difficulties. No problems with hearing. No sore throat. No sinus drainage. Endocrine: No diabetes or thyroid disease. Respiratory: No dyspnea on exertion or chronic cough. Cardiovascular: In November 2019, he had a cardiology workup through [facility] for achy left upper anterior chest discomfort. His EKG was normal sinus rhythm with left ventricular hypertrophy and therefore, he underwent an exercise stress test which was normal with ejection fraction of 70% ; he denies any current anginal type chest pain or palpitations or syncopal episodes. Gastrointestinal: No nausea, vomiting, diarrhea, GI bleeding, constipation, or change in bowel habits. Genitourinary: No dysuria. Musculoskeletal: Chronic back discomfort. No other joint pain. Integumentary: No chronic rashes or skin changes. Neurologic: No headache, blurred vision, or areas of focal weakness or numbness. Psychiatric: No reported anxiety, depression, or insomnia. PHYSICAL EXAMINATION GENERAL SURVEY: The patient is a 54-year-old obese male, well developed, in no acute distress. VITAL SIGNS: Height 70 inches, weight 247 pounds, body mass index 35.4. Blood pressure 126/88, pulse 78 and regular, respiratory rate 16, temperature 97.3 tympanic. HEENT: Benign. NECK: Supple. No cervical lymphadenopathy. BACK: No CVA tenderness. LUNGS: Breath sounds bilaterally clear and equal. HEART: Regular rate and rhythm. No murmurs or rubs appreciated. ABDOMEN: Active bowel sounds, obese, soft, nondistended, nontender throughout. No obvious masses, organomegaly, or evidence of ventral hernia. Right inguinal exam done by Dr. Reeves revealed a reducible right inguinal hernia, normal genitalia. MUSCULOSKELETAL: Normal strength and tone. NEUROLOGIC: Alert and oriented x3. Steady gait. SKIN: Warm, dry, intact. IMPRESSION: Right inguinal hernia. PLAN: Same-day surgery admission to Dr. Reeves's service on 12/27/19, for robotic right inguinal hernia repair with mesh. ASHLEY PONCE, MINE INSPECTOR [id number]/[facility] #: [id number] [facility]
[~2019-12-27 07:32] MED LIST: Buffered Lidocaine 1% SYRIN* 1 ML/SYRINGE INTRADERM ONE; Lactated Ringers 1000 ML Bag* 1,000 ML IV SCH
[2019-12-27] MEDS ORDERED: ceFAZolin 2 GM in NS PREMIX(*) 2 GM/100 ML BAG IVPB ONE (08:04)
[2019-12-27] MEDS ORDERED: fentaNYL* 50 MCG/ML 2 ML VIAL (100 MCG VIAL) ONE (08:55)
[2019-12-27] MEDS ORDERED: Propofol* 10 MG/ML 20 ML BTL ONE (08:55)
[2019-12-27] MEDS ORDERED: Midazolam* 1 MG/ML 2 ML VIAL (2 MG) ONE (08:55)
[2019-12-27] MEDS ORDERED: Lidocaine 2% PF * 5 ML VIAL ONE (08:55)
[2019-12-27] MEDS ORDERED: Neostigmine Methylsulfate* 1 MG/ML 10 ML VIAL (1 mg/ml) ONE (08:59)
[2019-12-27] MEDS ORDERED: Glycopyrrolate IV* 0.2 MG/ML 1 ML VIAL ONE (08:59)
[2019-12-27] MEDS ORDERED: Bupivacaine 0.25% SDV PF* 10 ML VIAL INJ ONE (09:32)
[2019-12-27] MEDS ORDERED: Succinylcholine* 20 MG/ML 10 ML VIAL ONE (10:03)
[2019-12-27] MEDS ORDERED: Metoclopramide IV* 5 MG/ML 2 ML VIAL ONE (10:18)
[2019-12-27] MEDS ORDERED: Ondansetron INJ* 2 MG/ML VIAL ONE (10:18)
[2019-12-27] MEDS ORDERED: Ketorolac INJ* 30 MG/ML 1 ML VIAL ONE (10:18)
[2019-12-27] MEDS ORDERED: Dexamethasone IV* 4 MG/ML 1 ML (4 MG) ONE (10:18)
[2019-12-27] MEDS ORDERED: Naloxone* 0.4 MG/ML 1 ML VIAL IV PRN (11:12)
[2019-12-27] MEDS ORDERED: fentaNYL* 50 MCG/ML 2 ML VIAL (100 MCG VIAL) IV PRN (11:12)
[2019-12-27] MEDS ORDERED: DiMENhydriNATE IV* 50 MG/ML VIAL IV PUSH PRN (11:12)
--- NOTE | 2019-12-27 11:38 | BRIEFOPN ---
Brief Operative/Procedure Note - Operation Details Pre-Op Diagnosis: right inguinal hernia Post-Op Diagnosis: same Procedures: robotic lysis of adhesions; repair right inguinal hernia w/ mesh Surgeon(s)/Proceduralists: Lala. Assist: REID Jimenez Anesthesia: GET. Fluids: 900 ml RL Estimated Blood Loss: none Findings: as above Specimen(s)/Culture(s) Description: none Complications: none
[2019-12-27 13:15] VITALS: BP 139/82
--- NOTE | 2019-12-28 01:40 | OP ---
DATE OF OPERATION: 12/27/19 [facility] DATE OF : 65 SURGEON: Curtis Reeves MD LEAD APPLICATION ARCHITECT: REID Cleary PRE-OP DIAGNOSIS: Right inguinal hernia. POST-OP DIAGNOSIS: Right inguinal hernia. OPERATIVE PROCEDURE: Robotic repair of right inguinal hernia with mesh. INDICATIONS: Right inguinal hernia risks included, but not limited to, bleeding , infection, injury to intraabdominal contents including the bowel, pelvic nerves and vessels, recurrence of the hernia explained to the patient, who seemed to understand and agreed to the procedure and all questions were answered. DESCRIPTION OF PROCEDURE: The patient was taken to the operating room and placed supine. Preoperative antibiotics were given. After the successful induction of general endotracheal anesthesia, the abdomen was prepped and draped in sterile fashion. Trocars were placed in the left upper quadrant, upper midline, and right upper quadrant respectively under direct visualization of the camera using bladeless Optiview trocar initially and pneumoperitoneum was achieved to 12 mmHg after the first trocar was placed. The abdomen was scanned. There was no obvious injury from trocar placement. The other 8-mm trocars were placed under direct visualization and the 5-mm trocar in the left upper quadrant was replaced with an 8- mm trocar. The patient was placed in the slight Trendelenburg position, tilted slightly towards his left and obvious right-sided hernia was noted, no left-sided hernia was noted. Few adhesions to the cecum/ascending colon down in the right lower quadrant were noted and an area where ink was noted presumably from colonoscopy and polyp marking that the patient had in the past. The bowel looked normal. The peritoneum was taken down and hernia sac was gently dissected free from the cord and the cord structures were preserved and identified. A large cord lipoma was removed from the indirect hernia space. A right-sided ProGrip mesh was then placed over the right hemipelvis covering the femoral, direct, and indirect spaces. The peritoneum was closed using a running 3-0 V-Loc suture. Small open area was also closed at the end of the incision with a 3-0 Vicryl suture. Both needles were removed. The abdomen was scanned. No obvious injuries were noted. Pneumoperitoneum was released from the abdomen. The trocars were removed. The skin was closed with 3-0 Monocryl. Glue was applied. He tolerated the procedure well. He was extubated and taken to the Recovery in stable condition. [id number]/[facility] #: [id number] ADAM
== END 2019-12-27 13:30 | disposition home or self-care (01) ==
LOC: OR 07:32
PROVIDERS: ATTEND Surgery
DX: K40.90 Unilateral inguinal hernia, without obstruction or gangrene, not specified as recurrent (principal); I10 Essential (primary) hypertension; R73.03 Prediabetes; G89.29 Other chronic pain
CPT/HCPCS: 49650; S2900; C1781; J0330; J0690; J1100; J1885; J2250; J2405; J2704; J2710; J2765; J3010; J3490